=== PATIENT | female | born 2000 | race Caucasian/White ===

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

== ENCOUNTER 2022-01-22 13:43 | Emergency (ER) | payer BC, MEDICAID ==
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
[2022-01-22 15:02] LABS: Appearance CLOUDY (CLEAR); Bacteria RARE /HPF (NEGATIVE); Bilirubin NEGATIVE (NEGATIVE); Blood NEGATIVE Ery/ul (0-5); Epithelial Cells MODERATE /HPF (FEW); Glucose NEGATIVE (NEGATIVE); Hyaline Casts 0-2 /LPF (0-2); Ketones TRACE (NEGATIVE); Leukocyte Esterase NEGATIVE (NEGATIVE); Mucus SLIGHT /HPF (NEGATIVE); Nitrite NEGATIVE (NEGATIVE); Protein,Urine Dip 30 (Negative); RBC 0-2 /HPF (0-2); Specific Gravity 1.051 (1.005-1.025); Urobilinogen NEGATIVE mg/dL (0-1)
[2022-01-22 15:09] LABS: Absolute Neutrophil Ct (ANC) 3.93 (1.4-6.9); Basophil (Absolute #) 0.01 (0-0.4); Eosinophil % 0.3 % (0.00-5.0); Eosinophil (Absolute #) 0.02 (0-0.5); Hematocrit 38.3 % (35-47); Hemoglobin 12.1 gm/dl (12.0-16.0); Lymphocyte (Absolute #) 2.04 (1.0-4.6); Lymphocytes % 31.5 % (24.0-44.0); Mean Cell Volume 88.9 fl (78-100); Mean Corpuscular Hemoglobin 28.1 pg (26-32); Mean Corpuscular Hgb Concent. 31.6 g/dl (32-36); Monocyte (Absolute #) 0.47 (0.0-1.3); Monocytes % 7.3 % (0.0-12.0); Neutrophil % 60.7 % (36.0-66.0); Platelet Count 286 K/mm3 (150-450); Red Blood Count 4.31 M/mm3 (4.1-5.4); White Blood Count 6.5 K/mm3 (4.0-10.5)
[2022-01-22 15:16] LABS: ACETAMINOPHEN 12 ug/ml (10-30); ALBUMIN 4.2 g/dL (3.5-5.0); ALKALINE PHOSPHATASE 48 U/L (38-126); ANION GAP 10.8 MEQ/L (5-15); BLOOD UREA NITROGEN 7 mg/dL (7-17); CHLORIDE 106 mmol/L (98-107); Carbon Dioxide 24 mmol/L (22-30); Creatinine 1 0.66 mg/dL (0.52-1.04); EST GLOMERULAR FILTRATION RATE > 60.0 ML/MIN; ETHYL ALCOHOL < 10 mg/dL (0-10); Glucose 107 mg/dL (74-106); Potassium 3.2 mmol/L (3.5-5.1); SALICYLATE < 1.0 mg/dL (2-20); SGOT/AST 25 U/L (14-36); SGPT/ALT 32 U/L (0-35); SODIUM 138 mmol/L (137-145); Total Protein 7.4 g/dL (6.3-8.2)
[2022-01-22 15:18] LABS: Amphetamine,Urine NEGATIVE (NEGATIVE); Barbiturate,Urine NEGATIVE (NEGATIVE); Benzodiazepine,Urine NEGATIVE (NEGATIVE); Cocaine,Urine NEGATIVE (NEGATIVE); Methadone,Urine NEGATIVE (NEGATIVE); Opiate,Urine NEGATIVE (NEGATIVE); PCP,Urine NEGATIVE (NEGATIVE); THC,Urine NEGATIVE (NEGATIVE)
[2022-01-22 15:22] LABS: INR 1.3 (0.8-3.0); PROTIME 15.3 SECONDS (9.4-12.5)
[2022-01-22 15:25] LABS: PTT 36.5 SECONDS (25.1-36.5)
[2022-01-22 16:38] LABS: COVID AG -BINAX NOW RAPID TEST NEGATIVE (NEGATIVE)
[2022-01-22] MEDS ORDERED: Klor Con 10 MEQ PO ONE ×2 (18:31→18:43)
[2022-01-22 18:52] LABS: ALKALINE PHOSPHATASE 48 U/L (38-126); ANION GAP 11.2 MEQ/L (5-15); BLOOD UREA NITROGEN 7 mg/dL (7-17); CHLORIDE 106 mmol/L (98-107); Calcium 9.4 mg/dL (8.4-10.2); Carbon Dioxide 25 mmol/L (22-30); Creatinine 1 0.64 mg/dL (0.52-1.04); EST GLOMERULAR FILTRATION RATE > 60.0 ML/MIN; Glucose 88 mg/dL (74-106); Potassium 3.5 mmol/L (3.5-5.1); SGOT/AST 24 U/L (14-36); SGPT/ALT 31 U/L (0-35); SODIUM 139 mmol/L (137-145)
[2022-01-23 00:06] VITALS: BP 118/67; PULSE 76
[2022-01-23 00:19] VITALS: O2SAT 99
== END 2022-01-23 00:15 ==
LOC: ED 13:43
DX: T39.1X2A Poisoning by 4-Aminophenol derivatives, intentional self-harm, initial encounter (principal); R11.2 Nausea with vomiting, unspecified
CPT/HCPCS: 36000; 36415; 80053; 80307; 81001; 84703; 85025; 85610; 85730; 93005; 93041; 99000; 99285; A9270-GY; G0480

== ENCOUNTER 2023-11-12 15:55 | Emergency (ER) | payer BC, MEDICAID ==
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
[2023-11-12 16:11] VITALS: BP 119/70; PULSE 75; RESP 16; O2SAT 98
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
[2023-11-12] MEDS ORDERED: ZOFRAN ODT 4 MG PO ONE (17:19)
[2023-11-12] MEDS ORDERED: PERCOCET TABLET 5/325MG PO STA (17:19)
[2023-11-12] MEDS ORDERED: Norflex 60 MG/2 ML IM ONE (17:20)
[2023-11-12] MEDS ORDERED: TORAdol 30 mg Injection IM ONE (17:20)
[2023-11-12] MEDS ORDERED: TORAdol 30 mg Injection ONE ×2 (17:27→17:39)
[2023-11-12] MEDS ORDERED: ZOFRAN ODT 4 MG ONE (17:27)
[2023-11-12] MEDS ORDERED: OXYCODONE-ACETAMINOPHEN 10-325 ONE (17:28)
[2023-11-12] MEDS ORDERED: Norflex 60 MG/2 ML ONE (17:28)
[2023-11-12] MEDS ORDERED: PERCOCET TABLET 5/325MG ONE (17:45)
== END 2023-11-12 18:10 | disposition home or self-care (01) ==
LOC: ED 15:55
DX: G44.309 Post-traumatic headache, unspecified, not intractable (principal); F07.81 Postconcussional syndrome; R11.2 Nausea with vomiting, unspecified; Z28.310 Unvaccinated for COVID-19
CPT/HCPCS: 70450; 96372; 96374; 96375; 99283; J1885; J2360; Q0162; A9270-GY

== ENCOUNTER 2024-01-04 10:33 | Emergency (ER) | payer BC ==
[2024-01-04 10:48] VITALS: RESP 20; TEMP 97.5
--- NOTE | 2024-01-04 11:05 | ERPHSYRPT ---
- History of Present Illness Time Seen by Provider: 01/04/24 11:00 Exam Limitations: no limitations Patient Subjective Stated Complaint: Pt states "I think I have a kidney infection. I have to pee all the time, it kearns and now my lower back hurts." Triage Nursing Assessment: Pt presented alert and oriented X 3, skin pwd. Pt ambulates with an upright steady gait, able to speak in clear full sentences. PT resting comfortably on the bed. Physician History: Patient is a 23-year-old female presents to our ED for evaluation of urinary frequency and dysuria. Patient also complains of low back pain. No CVA tenderness. Symptoms started approximately 2 weeks ago. Symptoms have been progressive. Symptoms are moderate in intensity. No specific worsening or improving factors. No fever patient voices no other complaints or concerns at this time. Portions of this note were created with voice recognition technology. There may be grammatical, spelling, punctuation or sound alike errors. Timing/Duration: week(s) (2 weeks) Severity: moderate Modifying Factors: Improves With: nothing Associated Symptoms: denies symptoms Allergies/Adverse Reactions: pseudoephedrine Allergy (Severe, Verified 11/12/23 16:08) Hives amoxicillin trihydrate [From Amoxil] Allergy (Mild, Verified 11/12/23 16:08) Rash cefaclor [From Ceclor] Allergy (Verified 11/12/23 16:08) Swelling of Face swelling of tongue and ears "bad" Home Medications: norgestimate-ethinyl estradioL [Tri-Sprintec Tablet] 1 tab PO DAILY 01/22/22 [History] Hx Tetanus, Diphtheria Vaccination/Date Given: Yes Hx Influenza Vaccination/Date Given: No Hx Pneumococcal Vaccination/Date Given: No Immunizations Up to Date: No Travel Risk - International Travel Have you traveled outside of the country in past 3 weeks: No - Coronavirus Screening Are you exhibiting any of the following symptoms?: No Close contact with a COVID-19 positive Pt in past 14-21 Days: No - Vaccine Status Have you recieved a Covid-19 vaccination: No - Review of Systems Constitutional: No Symptoms, No Fever, No Chills Eyes: No Symptoms Ears, Nose, & Throat: No Symptoms Respiratory: No Symptoms, No Cough, No Dyspnea Cardiac: No Symptoms, No Chest Pain, No Edema, No Syncope Abdominal/Gastrointestinal: No Symptoms, No Abdominal Pain, No Nausea, No Vomiting, No Diarrhea Genitourinary Symptoms: No Symptoms, No Dysuria Musculoskeletal: No Symptoms, No Back Pain, No Neck Pain Skin: No Symptoms, No Rash Neurological: No Symptoms, No Dizziness, No Focal Weakness, No Sensory Changes Psychological: No Symptoms Endocrine: No Symptoms Hematologic/Lymphatic: No Symptoms Immunological/Allergic: No Symptoms All Other Systems: Reviewed and Negative - Past Medical History Pertinent Past Medical History: No Neurological History: No Pertinent History ENT History: No Pertinent History Cardiac History: No Pertinent History Respiratory History: No Pertinent History Endocrine Medical History: No Pertinent History Musculoskeletal History: No Pertinent History GI Medical History: Gallbladder Disease History: No Pertinent History Psycho-Social History: No Pertinent History Female Reproductive Disorders: No Pertinent History - Past Surgical History Past Surgical History: Yes Neuro Surgical History: No Pertinent History Cardiac: No Pertinent History Respiratory: No Pertinent History Gastrointestinal: Cholecystectomy Genitourinary: No Pertinent History Musculoskeletal: No Pertinent History Female Surgical History: No Pertinent History - Social History Smoking Status: Never smoker Exposure to second hand smoke: Yes Drug Use: none Patient Lives Alone: No - Female History Hx Last Menstrual Period: 12/23/2023 Hx Now: No - Nursing Vital Signs Nursing Vital Signs: Initial Vital Signs Temperature 97.5 F 01/04/24 10:43 Pulse Rate 79 01/04/24 10:43 Respiratory Rate 20 01/04/24 10:43 Blood Pressure 108/80 01/04/24 10:43 O2 Sat by Pulse Oximetry 97 01/04/24 10:43 Pain Scale Pain Intensity 5 - Physical Exam General Appearance: no apparent distress, alert Eye Exam: PERRL/EOMI, eyes nml inspection Ears, Nose, Throat Exam: normal ENT inspection, moist mucous membranes Neck Exam: normal inspection, non-tender, supple, full range of motion Respiratory Exam: normal breath sounds, lungs clear, airway intact, No respiratory distress Cardiovascular Exam: regular rate/rhythm, normal heart sounds, normal peripheral pulses Gastrointestinal/Abdomen Exam: soft, normal bowel sounds, other (Mild suprapubic tenderness. No flank pain. No CVA tenderness. No abdominal pain), No tenderness, No mass Back Exam: normal inspection, normal range of motion, No CVA tenderness, No vertebral tenderness Extremity Exam: normal inspection, normal range of motion, pelvis stable Neurologic Exam: alert, oriented x 3, cooperative, normal mood/affect, nml cerebellar function, nml station & gait, sensation nml, No motor deficits Skin Exam: normal color, warm, dry, No rash Lymphatic Exam: No adenopathy SpO2 Interpretation: normal SpO2: 97 O2 Delivery: Room Air - Course Nursing assessment & vital signs reviewed: Yes Ordered Tests: Active Orders 24 hr Category Date Time Status CULTURE,URINE Stat Lab 01/04/24 10:50 Received HCG QUALITATIVE, URINE Stat Lab 01/04/24 Completed UA W/RFX UR CULTURE Stat Lab 01/04/24 10:50 Completed Medication Summary Discontinued Medications Generic Name Dose Route Start Last Admin Trade Name Nicanorq PRN Reason Stop Dose Admin Trimethoprim/Sulfamethoxazole 1 tab 01/04/24 12:00 01/04/24 12:04 Smz/Tmp Ds Tablet 1 Tablet PO 01/04/24 12:01 1 tab STAT STA Administration Trimethoprim/Sulfamethoxazole Confirm 01/04/24 12:04 Smz/Tmp Ds Tablet 1 Tablet Administered 01/04/24 12:05 Dose 1 tab PO .[employer] ONE Lab/Rad Data: Laboratory Results 01/04/24 01/04/24 Range/Units Unknown 10:50 Urine Color Yellow (Yellow) Urine Appearance Clear (Clear) Urine pH 5.5 (4.6-8.0) Ur Specific Bledsoe 1.015 (1.005-1.030) Urine Protein 30 (Negative) Urine Glucose (UA) Negative (Negative) mg/dL Urine Ketones Negative (Negative) Urine Blood Moderate A (Negative) Urine Nitrite Negative (Negative) Urine Bilirubin Negative (Negative) Urine Urobilinogen 0.2 (0.2) mg/dL Ur Leukocyte Esterase Moderate A (Negative) U Hyaline Cast (Auto) NONE SEEN (0-2) /LPF Urine Microscopic RBC 51-100 A (0-5) /HPF Urine Microscopic WBC >100 A (0-5) /HPF Ur Epithelial Cells None Seen (None Seen) /HPF Urine Bacteria None Seen (None Seen) /HPF Urine Culture Reflexed YES (NO) Urine HCG, Qual NEGATIVE (NEGATIVE) - Progress Progress: improved Progress Note: 23-year-old female presents emergency department for evaluation of low back pain dysuria urinary frequency. Patient's symptoms progressively worsened over 2 weeks. Physical exam reveals some tenderness to the suprapubic region. No CVA tenderness. Patient does have mild low back pain near her sacrum. No fever. Urinalysis reveals significant urinary tract infection with pyuria. Patient is allergic to amoxicillin and cefaclor. Therefore we were unable to administer IM Rocephin. Patient received an oral dose of Bactrim DS. A prescription for the same was forwarded to patient's pharmacy. Patient reassessed. She is resting comfortable. No active pain or discomfort. Patient that she is ready for discharge. Patient agrees to follow-up with her primary care doctor within 48 hours for reevaluation. Voices no other complaints or concerns at this time. Portions of this note were created with voice recognition technology. There may be grammatical, spelling, punctuation or sound alike errors Complexity problem addressed is moderate acute complicated No critical care time Complexity of data reviewed and analyzed is moderate. Test ordered test reviewed. Results analyzed and correlated clinically with history and physical exam. Risk of complication and or risk of morbidity/mortality of patient management is moderate Vital stable. Time spent to discharge patient is approximately 15 minutes. Plan of care established for shared decision making. No social determinants of health present impede follow-up. Portions of this note were created with voice recognition technology. There may be grammatical, spelling, punctuation or sound alike errors 01/04/24 12:17 Counseled pt/family regarding: lab results, diagnosis, need for follow-up - Departure Departure Disposition: Home Clinical Impression: UTI (urinary tract infection) Condition: Stable Critical Care Time: No Referrals: VIRGINIA CHONG [Primary Care Provider] - Follow up/PCP as directed Additional Instructions: Discharge/Care Plan [email or web address] was seen on 01/04/24 in the Emergency Room. The patient was counseled regarding Diagnosis,Lab results, Imaging studies, need for follow up and when to return to the Emergency Room. Prescriptions given: Discharge Note I have spoken with the patient and/or caregivers. I have explained the patient's condition, diagnosis and treatment plan based on the information available to me at this time. I have answered the patient's and/or caregiver's questions and addressed any concerns. The patient and/or caregivers have as good understanding of the patient's diagnosis, condition and treatment plan as can be expected at this point. The vital signs have been stable. The patient's condition is stable and appropriate for discharge from the emergency department. The patient will pursue further outpatient evaluation with the primary care physician or other designated or consulting physician as outlined in the discharge instructions. The patient and/or caregivers are agreeable to this plan of care and follow-up instructions have been explained in detail. The patient and/or caregivers have received these instruction. The patient/and or caregivers are aware that any significant change in condition or worsening of symptoms should prompt an immediate return to this or the closest emergency department or call 911. Prescriptions: Smz/Tmp Ds Tablet [Bactrim Ds Tablet] 1 udtab PO BID 7 Days #14 tablet
[2024-01-04 11:12] LABS: Appearance Clear (Clear); Bacteria None Seen /HPF (None Seen); Bilirubin Negative (Negative); Blood Moderate (Negative); Epithelial Cells None Seen /HPF (None Seen); Glucose, Urine Negative (Negative); Hyaline Casts NONE SEEN /LPF (0-2); Ketones Negative (Negative); Leukocyte Esterase Moderate (Negative); Nitrite Negative (Negative); Ph 5.5 (4.6-8.0); Protein,Urine Dip 30 (Negative); RBC 51-100 /HPF (0-5); Specific Gravity 1.015 (1.005-1.030); Urobilinogen 0.2 mg/dL (0.2); WBC >100 /HPF (0-5)
[2024-01-04 11:13] LABS: ADD URINE CULTURE? YES (NO)
[2024-01-04 11:19] LABS: HCG URINE TEST NEGATIVE (NEGATIVE)
[2024-01-04 12:04] VITALS: BP 106/67; PULSE 72
[2024-01-04] MEDS ORDERED: BACTRIM DS TABLET PO ONE (12:04)
[2024-01-04] MEDS: BACTRIM DS TABLET PO STA (12:04)
[2024-01-04 12:23] VITALS: O2SAT 97
== END 2024-01-04 12:20 | disposition home or self-care (01) ==
LOC: ED 10:33
DX: N39.0 Urinary tract infection, site not specified (principal); R30.0 Dysuria; R35.0 Frequency of micturition; M54.50 Low back pain, unspecified; Z28.310 Unvaccinated for COVID-19
CPT/HCPCS: 81001; 81025; 87077; 87086; 87186; 99283; A9270-GY

== ENCOUNTER 2024-09-23 00:05 | Observation (INO) | payer BC ==
[2024-09-23 00:42] LABS: Hematocrit 37.8 % (34.1-44.9); Hemoglobin 11.6 g/dL (11.2-15.7); Mean Cell Volume 84.4 fL (79.4-94.8); Mean Corpuscular Hemoglobin 25.9 pg (25.6-32.2); Mean Corpuscular Hgb Concent. 30.7 g/dL (32.2-35.5); Mean Platelet Volume 10.9 fL (9.4-12.3); Platelet Count 310 x10^3/uL (182-369); Red Blood Count 4.48 x10^6/uL (3.93-5.22); Red Cell Distribution Width 14.4 % (11.7-14.4); White Blood Count 7.7 x10^3/uL (3.98-10.04)
[2024-09-23 00:44] LABS: HCG URINE TEST NEGATIVE (NEGATIVE)
--- NOTE | 2024-09-23 00:48 | ERPHSYRPT ---
- History of Present Illness Time Seen by Provider: 09/23/24 00:48 Source: patient Exam Limitations: no limitations Physician History: The patient, with a history of prior suicide attempts and inpatient psychiatric admissions, presents after an intentional overdose of Tylenol. The exact quantity ingested is unknown, but she describes it as 'a lot.' The ingestion occurred around 10:00, reportedly out of anger and with the intention to induce sleep. She denies any intent to self-harm. Following the ingestion, she experienced multiple episodes of vomiting, totaling four times before arrival at the hospital. She also reports feeling 'really, really tired.' There is no reported abdominal pain on palpation. Timing/Duration: today Severity of Symptoms-Max: moderate Severity of Symptoms-Current: moderate Context related to: significant other Suicidal thoughts: attempt, ingestion Associated Symptoms: anxiety, depressed, ingestion, suicidal ideation, No angry, No agitated, No frustrated, No hostile, No hallucinating Previous symptoms: same symptoms as today Allergies/Adverse Reactions: pseudoephedrine Allergy (Severe, Verified 09/23/24 00:12) Hives amoxicillin trihydrate [From Amoxil] Allergy (Mild, Verified 09/23/24 00:12) Rash cefaclor [From Ceclor] Allergy (Verified 09/23/24 00:12) Swelling of Face swelling of tongue and ears "bad" Home Medications: norgestimate-ethinyl estradioL [Tri-Sprintec Tablet] 1 tab PO DAILY 01/22/22 [History] Hx Tetanus, Diphtheria Vaccination/Date Given: Yes Hx Influenza Vaccination/Date Given: No Hx Pneumococcal Vaccination/Date Given: No Travel Risk - International Travel Have you traveled outside of the country in past 3 weeks: No - Past Medical History Pertinent Past Medical History: No Neurological History: No Pertinent History ENT History: No Pertinent History Cardiac History: No Pertinent History Respiratory History: No Pertinent History Endocrine Medical History: No Pertinent History Musculoskeletal History: No Pertinent History GI Medical History: Gallbladder Disease History: No Pertinent History Psycho-Social History: No Pertinent History Female Reproductive Disorders: No Pertinent History - Past Surgical History Past Surgical History: Yes Neuro Surgical History: No Pertinent History Cardiac: No Pertinent History Respiratory: No Pertinent History Gastrointestinal: Cholecystectomy Genitourinary: No Pertinent History Musculoskeletal: No Pertinent History Female Surgical History: No Pertinent History - Social History Smoking Status: Never smoker Exposure to second hand smoke: Yes Drug Use: none Patient Lives Alone: No - Review of Systems All Other Systems: Reviewed and Negative - Nursing Vital Signs Nursing Vital Signs: Initial Vital Signs Temperature 98.5 F 09/23/24 00:12 Pulse Rate 80 09/23/24 00:12 Respiratory Rate 16 09/23/24 00:12 Blood Pressure 123/69 09/23/24 00:12 O2 Sat by Pulse Oximetry 99 09/23/24 00:12 Pain Scale Pain Intensity 0 - Physical Exam General Appearance: no apparent distress, obese Respiratory Exam: normal breath sounds, lungs clear, airway intact, No respiratory distress Cardiovascular Exam: regular rate/rhythm, normal heart sounds, capillary refill <2 sec Gastrointestinal/Abdominal Exam: soft, normal bowel sounds, No tenderness, No distention, No mass, No guarding, No rebound Extremities Exam: normal inspection Neurological Exam: alert, normal mood/affect, calm, oriented x 3, depressed affect, flat Appearance: appropriate appearance, impaired insight Behavior/Eye Contact/Speech: alert & cooperative, avoids eye contact, decreased rate of speech Thoughts/Hallucinations: no apparent hallucination Skin Exam: normal color, warm, diaphoresis SpO2 Interpretation: normal O2 Delivery: Room Air - Course Nursing assessment & vital signs reviewed: Yes EKG Interpreted by Me: RATE (72), Sinus Rhythm, NORMAL AXIS, NORMAL INTERVALS, NORMAL QRS, NORMAL ST-T Ordered Tests: Medication Summary Generic Name Dose Route Start Last Admin Trade Name Freq PRN Reason Stop Dose Admin Famotidine 20 mg 09/23/24 10:00 09/23/24 21:13 Famotidine 20 Mg/1 Vial IV 10/23/24 09:59 20 mg Q12HT SEGUNDO Administration Promethazine HCl 12.5 mg/ 100.5 mls @ 201 mls/hr 09/23/24 05:11 09/23/24 05:20 Sodium Chloride IV 10/23/24 05:10 201 mls/hr Q4H PRN PRN Administration UNCONTROLLED NAUSEA Discontinued Medications Generic Name Dose Route Start Last Admin Trade Name Freq PRN Reason Stop Dose Admin Acetylcysteine Confirm 09/23/24 02:47 Acetylcysteine 200 Mg/Ml Ml Administered 09/23/24 02:48 Dose 600 mg IV .STK-MED ONE Acetylcysteine Confirm 09/23/24 03:25 Acetylcysteine 200 Mg/Ml Ml Administered 09/23/24 03:26 Dose 400 mg IV .STK-MED ONE Acetylcysteine / Dextrose 250 mls @ 250 mls/hr 09/23/24 02:42 IV 09/23/24 03:41 .Q1H ONE Dextrose Confirm 09/23/24 02:47 Dextrose 5%/Water Iv Soln. 250 Ml Administered 09/23/24 02:48 Dose 250 mls @ ud IV .STK-MED ONE Dextrose Confirm 09/23/24 03:25 Dextrose 5%/Water Iv Soln. 500 Ml Administered 09/23/24 03:26 Dose 500 mls @ ud IV .STK-MED ONE Ceftriaxone Sodium 1 gm in 100 mls @ 200 mls/hr 09/23/24 10:00 09/23/24 13:43 Rocephin 1 Gm / 100 Ml Nacl IV 10/23/24 09:59 Not Given Q24H10 SEGUNDO Sodium Chloride Confirm 09/23/24 05:17 Sodium Chloride 0.9% Administered 09/23/24 05:18 Dose 100 mls @ ud .ROUTE .STK-MED ONE Acetylcysteine 15,000 mg/ 325 mls @ 325 mls/hr 09/23/24 03:15 09/23/24 03:15 Dextrose IV 09/23/24 04:14 325 mls/hr .Q1H ONE 325 mls/hr Administration Acetylcysteine 5,000 mg/ 525 mls @ 131.25 mls/hr 09/23/24 05:00 09/23/24 04:30 Dextrose IV 09/23/24 08:59 131.25 mls/hr .Q4H ONE 131.25 mls/hr Administration Acetylcysteine 10,000 mg/ 1,050 mls @ 65.625 mls/hr 09/23/24 09:00 09/23/24 09:52 Dextrose IV 09/24/24 00:59 65 mls/hr .Q16H ONE 65 mls/hr Administration Potassium Chloride 100 mls @ 50 mls/hr 09/24/24 03:15 09/24/24 05:35 Potassium Chloride 20 Meq In Water 100ml IV 09/24/24 07:14 50 mls/hr Q2H SEGUNDO Administration Sodium Chloride Confirm 09/24/24 03:24 Sodium Chloride 0.9% Administered 09/24/24 03:25 Dose 100 mls @ ud .ROUTE .STK-MED ONE Sodium Chloride 100 mls @ 100 mls/hr 09/24/24 03:26 09/24/24 03:27 Sodium Chloride 0.9% IV 09/24/24 04:25 100 mls/hr STAT ONE Administration Sodium Chloride Confirm 09/24/24 04:15 Sodium Chloride 0.9% 500 Ml Administered 09/24/24 04:16 Dose 500 mls @ ud IV .STK-MED ONE Sodium Chloride 500 mls @ 50 mls/hr 09/24/24 04:30 09/24/24 04:19 Sodium Chloride 0.9% 500 Ml IV 10/24/24 04:29 50 mls/hr .Q10H SEGUNDO Administration Ondansetron HCl 8 mg 09/23/24 01:45 09/23/24 02:05 Ondansetron Hcl 4 Mg/2 Ml Vial IV 09/23/24 01:46 8 mg STAT ONE Administration Ondansetron HCl Confirm 09/23/24 02:05 Ondansetron Hcl 4 Mg/2 Ml Vial Administered 09/23/24 02:06 Dose 8 mg .ROUTE .STK-MED ONE Potassium Chloride 20 meq 09/24/24 03:15 09/24/24 07:22 Potassium Chloride Tab 10 Meq Tab PO 09/24/24 09:16 20 meq Q2H SEGUNDO Administration Promethazine HCl Confirm 09/23/24 05:17 Promethazine Hcl 25 Mg/Ml Vial Administered 09/23/24 05:18 Dose 25 mg .ROUTE .STK-MED ONE Lab/Rad Data: Laboratory Result Diagrams 09/23/24 00:40 09/23/24 00:40 Laboratory Results 09/23/24 09/23/24 09/23/24 Range/Units 02:20 02:08 00:40 WBC (3.98-10.04) x10^3/uL RBC (3.93-5.22) x10^6/uL Hgb (11.2-15.7) g/dL Hct (34.1-44.9) % MCV (79.4-94.8) fL MCH (25.6-32.2) pg MCHC (32.2-35.5) g/dL RDW (11.7-14.4) % Plt Count (182-369) x10^3/uL MPV (9.4-12.3) fL Segmented Neutrophils (34.0-71.1) % Band Neutrophils (0.0-2.0) % Lymphocytes (Manual) (19.3-51.7) % Monocytes (Manual) (4.7-12.5) % Platelet Estimate (NORMAL) RBC Morphology PT (9.4-12.5) SECONDS INR (0.8-3.0) APTT (25.1-36.5) SECONDS Sodium (135-145) mmol/L Potassium (3.5-5.1) mmol/L Chloride (98-107) mmol/L Carbon Dioxide (22-30) mmol/L Anion Gap (5-15) MEQ/L BUN (7-17) mg/dL Creatinine (0.52-1.04) mg/dL Estimated GFR ML/MIN Glucose (74-106) mg/dL Calcium (8.4-10.2) mg/dL Total Bilirubin (0.2-1.3) mg/dL AST (14-36) U/L ALT (0-35) U/L Alkaline Phosphatase (38-126) U/L Ammonia < 9 L (9-30) umol/L Serum Total Protein (6.3-8.2) g/dL Albumin (3.5-5.0) g/dL Urine Color Yellow (Yellow) Urine Appearance Clear (Clear) Urine pH 5.0 (4.6-8.0) Ur Specific [place] >=1.030 A (1.005-1.030) Urine Protein 30 (Negative) Urine Glucose (UA) Negative (Negative) mg/dL Urine Ketones Trace A (Negative) Urine Blood Negative (Negative) Urine Nitrite Negative (Negative) Urine Bilirubin Negative (Negative) Urine Urobilinogen 1.0 A (0.2) mg/dL Ur Leukocyte Esterase Small A (Negative) U Hyaline Cast (Auto) NONE SEEN (0-2) /LPF Urine Microscopic RBC 3-5 (0-5) /HPF Urine Microscopic WBC 11-20 A (0-5) /HPF Ur Epithelial Cells Many A (None Seen) /HPF Urine Bacteria Many A (None Seen) /HPF Urine Culture Reflexed YES (NO) Urine HCG, Qual (NEGATIVE) Salicylates (2-20) mg/dL Urine Opiates Level (NEGATIVE) Ur Methadone (NEGATIVE) Acetaminophen 174 H* (10-30) ug/ml Urine Barbiturates (NEGATIVE) Ur Phencyclidine (PCP) (NEGATIVE) Urine Amphetamine (NEGATIVE) U Benzodiazepine Level (NEGATIVE) Urine Cocaine (NEGATIVE) Urine Marijuana (THC) (NEGATIVE) Ethyl Alcohol (0-10) mg/dL 09/23/24 09/23/24 09/23/24 Range/Units 00:40 00:40 00:40 WBC 7.7 (3.98-10.04) x10^3/uL RBC 4.48 (3.93-5.22) x10^6/uL Hgb 11.6 (11.2-15.7) g/dL Hct 37.8 (34.1-44.9) % MCV 84.4 (79.4-94.8) fL MCH 25.9 (25.6-32.2) pg MCHC 30.7 L (32.2-35.5) g/dL RDW 14.4 (11.7-14.4) % Plt Count 310 (182-369) x10^3/uL MPV 10.9 (9.4-12.3) fL Segmented Neutrophils 69 (34.0-71.1) % Band Neutrophils 1 (0.0-2.0) % Lymphocytes (Manual) 21 (19.3-51.7) % Monocytes (Manual) 9 (4.7-12.5) % Platelet Estimate NORMAL (NORMAL) RBC Morphology NORMAL PT 11.1 (9.4-12.5) SECONDS INR 1.02 (0.8-3.0) APTT 32.3 (25.1-36.5) SECONDS Sodium (135-145) mmol/L Potassium (3.5-5.1) mmol/L Chloride (98-107) mmol/L Carbon Dioxide (22-30) mmol/L Anion Gap (5-15) MEQ/L BUN (7-17) mg/dL Creatinine (0.52-1.04) mg/dL Estimated GFR ML/MIN Glucose (74-106) mg/dL Calcium (8.4-10.2) mg/dL Total Bilirubin (0.2-1.3) mg/dL AST (14-36) U/L ALT (0-35) U/L Alkaline Phosphatase (38-126) U/L Ammonia (9-30) umol/L Serum Total Protein (6.3-8.2) g/dL Albumin (3.5-5.0) g/dL Urine Color (Yellow) Urine Appearance (Clear) Urine pH (4.6-8.0) Ur Specific [place] (1.005-1.030) Urine Protein (Negative) Urine Glucose (UA) (Negative) mg/dL Urine Ketones (Negative) Urine Blood (Negative) Urine Nitrite (Negative) Urine Bilirubin (Negative) Urine Urobilinogen (0.2) mg/dL Ur Leukocyte Esterase (Negative) U Hyaline Cast (Auto) (0-2) /LPF Urine Microscopic RBC (0-5) /HPF Urine Microscopic WBC (0-5) /HPF Ur Epithelial Cells (None Seen) /HPF Urine Bacteria (None Seen) /HPF Urine Culture Reflexed (NO) Urine HCG, Qual NEGATIVE (NEGATIVE) Salicylates (2-20) mg/dL Urine Opiates Level (NEGATIVE) Ur Methadone (NEGATIVE) Acetaminophen (10-30) ug/ml Urine Barbiturates (NEGATIVE) Ur Phencyclidine (PCP) (NEGATIVE) Urine Amphetamine (NEGATIVE) U Benzodiazepine Level (NEGATIVE) Urine Cocaine (NEGATIVE) Urine Marijuana (THC) (NEGATIVE) Ethyl Alcohol (0-10) mg/dL 09/23/24 09/23/24 Range/Units 00:40 00:40 WBC (3.98-10.04) x10^3/uL RBC (3.93-5.22) x10^6/uL Hgb (11.2-15.7) g/dL Hct (34.1-44.9) % MCV (79.4-94.8) fL MCH (25.6-32.2) pg MCHC (32.2-35.5) g/dL RDW (11.7-14.4) % Plt Count (182-369) x10^3/uL MPV (9.4-12.3) fL Segmented Neutrophils (34.0-71.1) % Band Neutrophils (0.0-2.0) % Lymphocytes (Manual) (19.3-51.7) % Monocytes (Manual) (4.7-12.5) % Platelet Estimate (NORMAL) RBC Morphology PT (9.4-12.5) SECONDS INR (0.8-3.0) APTT (25.1-36.5) SECONDS Sodium 141 (135-145) mmol/L Potassium 3.6 (3.5-5.1) mmol/L Chloride 105 (98-107) mmol/L Carbon Dioxide 23 (22-30) mmol/L Anion Gap 17.8 H (5-15) MEQ/L BUN 8 (7-17) mg/dL Creatinine 0.67 (0.52-1.04) mg/dL Estimated GFR 126.7 ML/MIN Glucose 125 H (74-106) mg/dL Calcium 9.2 (8.4-10.2) mg/dL Total Bilirubin 0.50 (0.2-1.3) mg/dL AST 36 (14-36) U/L ALT 36 H (0-35) U/L Alkaline Phosphatase 53 (38-126) U/L Ammonia (9-30) umol/L Serum Total Protein 7.8 (6.3-8.2) g/dL Albumin 4.2 (3.5-5.0) g/dL Urine Color (Yellow) Urine Appearance (Clear) Urine pH (4.6-8.0) Ur Specific [place] (1.005-1.030) Urine Protein (Negative) Urine Glucose (UA) (Negative) mg/dL Urine Ketones (Negative) Urine Blood (Negative) Urine Nitrite (Negative) Urine Bilirubin (Negative) Urine Urobilinogen (0.2) mg/dL Ur Leukocyte Esterase (Negative) U Hyaline Cast (Auto) (0-2) /LPF Urine Microscopic RBC (0-5) /HPF Urine Microscopic WBC (0-5) /HPF Ur Epithelial Cells (None Seen) /HPF Urine Bacteria (None Seen) /HPF Urine Culture Reflexed (NO) Urine HCG, Qual (NEGATIVE) Salicylates < 1.0 L (2-20) mg/dL Urine Opiates Level NEGATIVE (NEGATIVE) Ur Methadone NEGATIVE (NEGATIVE) Acetaminophen 239 H* (10-30) ug/ml Urine Barbiturates NEGATIVE (NEGATIVE) Ur Phencyclidine (PCP) NEGATIVE (NEGATIVE) Urine Amphetamine NEGATIVE (NEGATIVE) U Benzodiazepine Level NEGATIVE (NEGATIVE) Urine Cocaine NEGATIVE (NEGATIVE) Urine Marijuana (THC) NEGATIVE (NEGATIVE) Ethyl Alcohol < 10 (0-10) mg/dL - Progress Progress: improved Progress Note: Acetaminophen Overdose Ingested an unknown quantity of Tylenol at 10:00. No abdominal pain. Vomited four times. -Check initial Tylenol level now, repeat at 2 hours and 4 hours post-ingestion. -Monitor liver function tests. Psychiatric Evaluation History of prior suicide attempt. Denies current suicidal ideation but circumstances of overdose are suspicious. -Request psychiatric consult for further evaluation and management. Initial acetaminophen level 237 at 2 hours, 163 at 4 hours, poison control recommended initiation of NAC. Loading dose given. No elevation in LFTs at this time. Discussed admission, accepted by Dr. Perez. Will see patient in: hospital (observation) Counseled pt/family regarding: drug and/or alcohol abuse, lab results, diagnosis, need for follow-up Medical Desision Making - Independent Historian Additional History obtained from: Mother - Discussion of managment Care discussed with:: hospitalist Reviewed:: Test results, Need for additional workup Agreed on:: Treatment plan, place in obs - Diagnostic Testing Diagnostic test were ordered, analyzed, and reviewed by me: Yes Radiological Interpretation: Interpreted by me - Risk of complications The pt has a mod risk of morbidity or mortality based on: Need for prescription drug management The pt has a high risk of morbidity or mortality based on: Decision regarding hospitilization or escalation of hosp level of care - Departure Departure Disposition: Observation Clinical Impression: Suicidal deliberate poisoning, Acetaminophen toxicity, Overdose by acetaminophen, Nausea and vomiting Condition: Stable Critical Care Time: No
[2024-09-23 00:58] LABS: ALBUMIN 4.2 g/dL (3.5-5.0); ALKALINE PHOSPHATASE 53 U/L (38-126); ANION GAP 17.8 MEQ/L (5-15); BLOOD UREA NITROGEN 8 mg/dL (7-17); CHLORIDE 105 mmol/L (98-107); Calcium 9.2 mg/dL (8.4-10.2); Carbon Dioxide 23 mmol/L (22-30); Creatinine 1 0.67 mg/dL (0.52-1.04); EST GLOMERULAR FILTRATION RATE 126.7 ML/MIN; ETHYL ALCOHOL < 10 mg/dL (0-10); Glucose 125 mg/dL (74-106); Potassium 3.6 mmol/L (3.5-5.1); SALICYLATE < 1.0 mg/dL (2-20); SGOT/AST 36 U/L (14-36); SGPT/ALT 36 U/L (0-35); SODIUM 141 mmol/L (135-145); Total Protein 7.8 g/dL (6.3-8.2)
[2024-09-23 00:59] LABS: Amphetamine,Urine NEGATIVE (NEGATIVE); Barbiturate,Urine NEGATIVE (NEGATIVE); Benzodiazepine,Urine NEGATIVE (NEGATIVE); Cocaine,Urine NEGATIVE (NEGATIVE); Methadone,Urine NEGATIVE (NEGATIVE); Opiate,Urine NEGATIVE (NEGATIVE); PCP,Urine NEGATIVE (NEGATIVE); THC,Urine NEGATIVE (NEGATIVE)
[2024-09-23 01:29] LABS: ACETAMINOPHEN 239 ug/ml (10-30)
[2024-09-23 01:39] LABS: INR 1.02 (0.8-3.0); PROTIME 11.1 SECONDS (9.4-12.5); PTT 32.3 SECONDS (25.1-36.5)
[2024-09-23] MEDS: Zofran 4 MG/2 ML VIAL IV ONE (02:05)
[2024-09-23] MEDS ORDERED: Zofran 4 MG/2 ML VIAL ONE (02:05)
[2024-09-23 02:17] LABS: Appearance Clear (Clear); Bacteria Many /HPF (None Seen); Bilirubin Negative (Negative); Blood Negative (Negative); Epithelial Cells Many /HPF (None Seen); Glucose, Urine Negative (Negative); Hyaline Casts NONE SEEN /LPF (0-2); Ketones Trace (Negative); Nitrite Negative (Negative); Protein,Urine Dip 30 (Negative); Specific Gravity >=1.030 (1.005-1.030)
[2024-09-23 02:18] LABS: Leukocyte Esterase Small (Negative)
[2024-09-23] MEDS ORDERED: Acetadote IV 200 MG/ML*** 0 MG in Dextrose 5%/Water IV Soln. 250 ML 250 ML IV ONE (02:42)
[2024-09-23] MEDS ORDERED: Dextrose 5%/Water IV Soln. 250 ML 250 ML IV ONE (02:47)
[2024-09-23] MEDS ORDERED: Acetadote IV 200 MG/ML IV ONE ×2 (02:47→03:25)
[2024-09-23 02:57] LABS: BAND 1 % (0.0-2.0); Lymphocytes 21 % (19.3-51.7); Monocyte 9 % (4.7-12.5); Neutrophils 69 % (34.0-71.1); Platelet Estimate NORMAL (NORMAL); Total Cells Counted 100
[2024-09-23] MEDS: DEXTROSE IV ONE ×3 (03:15→09:52)
[2024-09-23] MEDS: ACETADOTE IV ONE ×3 (03:15→09:52)
[2024-09-23] MEDS: WATER IV ONE ×3 (03:15→09:52)
[2024-09-23] MEDS ORDERED: Dextrose 5%/Water IV Soln. 500 ML 500 ML IV ONE (03:25)
--- NOTE | 2024-09-23 05:13 | PCM.HP ---
History of Present Illness - Chief Complaint Chief Complaint: acetaminophen toxicity Date: 09/23/24 History of Present Illness: 24 years old lady with no significant past any history except prior attempted suicide came to the ER after intentional overdose of dosing of Tylenol the exact quantity is unknown but she took almost half of the bottle at 10 PM last night. She came with nausea vomiting and some epigastric discomfort., Of note history is limited as patient was in severe discomfort due to ongoing nausea not able to answer most of my question., Most of the info obtained from ER chart review. Vital signs were quite stable in ER. As far as lab w/u concerned Workup concerned it was significant for low potassium otherwise essentially negative. Tylenol level was running more than 250 she started on N-acetylcysteine protocol, repeat Tylenol level trended down nicely LFTs remained unremarkable and so does INR. patient admitted for close observation - Review of Systems All Other Systems: Reviewed and Negative Medications & Allergies Home Medications: Home Medication List norgestimate-ethinyl estradioL [Tri-Sprintec Tablet] 1 tab PO DAILY 01/22/22 [History Confirmed 09/23/24] Allergies/Adverse Reactions: Allergies Allergy/AdvReac Type Severity Reaction Status Date / Time pseudoephedrine Allergy Severe Hives Verified 09/23/24 00:12 amoxicillin trihydrate Allergy Mild Rash Verified 09/23/24 00:12 [From Amoxil] cefaclor [From Ceclor] Allergy Swelling Verified 09/23/24 00:12 of Face - Past Medical History Past Medical History: No Neurological History: No Pertinent History ENT History: No Pertinent History Cardiac History: No Pertinent History Respiratory History: No Pertinent History Endocrine Medical History: No Pertinent History Musculoskelatal History: No Pertinent History GI Medical History: Gallbladder Disease History: No Pertinent History Pyscho-Social History: No Pertinent History Reproductive Disorders: No Pertinent History Comment: anemia, SI attempts in the past - Female History Hx Last Menstrual Period: 09/18/24 Are you now?: No - Past Surgical History Past Surgical History: Yes Neuro Surgical History: No Pertinent History Cardiac History: No Pertinent History Respiratory Surgery: No Pertinent History GI Surgical History: Cholecystectomy Genitourinary Surgical Hx: No Pertinent History Musculskeletal Surgical Hx: No Pertinent History Female Surgical History: No Pertinent History Significant Family History: no pertinent family hx - Social History Smoking Status: Never smoker Exposure to second hand smoke: No Alcohol: None Drug Use: none - Social Determinants of Health Will the patient participate in the screening: Yes Do you worry about a steady place to live?: No Do you have any problems with any of the following?: No known problems In the past 12 months,have you had to go without utilities?: No Have you or anyone in your house had to go without enough: No Transportation Issues: No Has anyone in your support network made you feel unsafe?: No Does the patient want assistance with any of the above?: No - Physical Exam Vital Signs: Vital Signs - 24 hr Temp Pulse Resp BP BP Pulse Ox 09/23/24 04:31 98.5 F 82 17 123/69 98 09/23/24 04:29 82 17 121/91 98 09/23/24 04:28 92 H 16 97 09/23/24 04:24 76 16 97 09/23/24 04:10 84 19 98 09/23/24 04:03 90 16 97 09/23/24 03:30 95 H 17 128/71 97 09/23/24 03:00 66 15 98/61 96 09/23/24 02:31 67 15 119/63 97 09/23/24 02:08 87 19 106/70 98 09/23/24 01:50 86 17 99 09/23/24 01:40 86 21 99 09/23/24 01:31 79 17 95 09/23/24 01:00 84 19 113/72 98 09/23/24 00:31 72 16 108/72 98 09/23/24 00:12 98.5 F 80 16 123/69 99 Additional Findings: 09/23/24 05:12 HEENT Young aged, Obese built in distress, keeps vomiting NECK Supple,no thyromegaly, CVS S1+S2 + 0, no murmers RESP Bilateral equal air entry without Crepts/Wheezes heard GIT Soft non tender,non distended Skin, No rah, no Bruises LEGS No Edema PSYCH Normal,mood, judgement and insight NEURO AOX3, no focal deficit Results - Labs Lab/Micro Results: Lab Results-Last 24 Hours 09/23/24 09/23/24 09/23/24 Range/Units 00:40 00:40 00:40 WBC 7.7 (3.98-10.04) x10^3/uL RBC 4.48 (3.93-5.22) x10^6/uL Hgb 11.6 (11.2-15.7) g/dL Hct 37.8 (34.1-44.9) % MCV 84.4 (79.4-94.8) fL MCH 25.9 (25.6-32.2) pg MCHC 30.7 L (32.2-35.5) g/dL RDW 14.4 (11.7-14.4) % Plt Count 310 (182-369) x10^3/uL MPV 10.9 (9.4-12.3) fL Segmented Neutrophils 69 (34.0-71.1) % Band Neutrophils 1 (0.0-2.0) % Lymphocytes (Manual) 21 (19.3-51.7) % Monocytes (Manual) 9 (4.7-12.5) % Platelet Estimate NORMAL (NORMAL) RBC Morphology NORMAL PT (9.4-12.5) SECONDS INR (0.8-3.0) APTT (25.1-36.5) SECONDS Sodium 141 (135-145) mmol/L Potassium 3.6 (3.5-5.1) mmol/L Chloride 105 (98-107) mmol/L Carbon Dioxide 23 (22-30) mmol/L Anion Gap 17.8 H (5-15) MEQ/L BUN 8 (7-17) mg/dL Creatinine 0.67 (0.52-1.04) mg/dL Estimated GFR 126.7 ML/MIN Glucose 125 H (74-106) mg/dL Calcium 9.2 (8.4-10.2) mg/dL Total Bilirubin 0.50 (0.2-1.3) mg/dL AST 36 (14-36) U/L ALT 36 H (0-35) U/L Alkaline Phosphatase 53 (38-126) U/L Ammonia (9-30) umol/L Serum Total Protein 7.8 (6.3-8.2) g/dL Albumin 4.2 (3.5-5.0) g/dL Urine Color (Yellow) Urine Appearance (Clear) Urine pH (4.6-8.0) Ur Specific [place] (1.005-1.030) Urine Protein (Negative) Urine Glucose (UA) (Negative) mg/dL Urine Ketones (Negative) Urine Blood (Negative) Urine Nitrite (Negative) Urine Bilirubin (Negative) Urine Urobilinogen (0.2) mg/dL Ur Leukocyte Esterase (Negative) U Hyaline Cast (Auto) (0-2) /LPF Urine Microscopic RBC (0-5) /HPF Urine Microscopic WBC (0-5) /HPF Ur Epithelial Cells (None Seen) /HPF Urine Bacteria (None Seen) /HPF Urine Culture Reflexed (NO) Urine HCG, Qual (NEGATIVE) Salicylates < 1.0 L (2-20) mg/dL Urine Opiates Level NEGATIVE (NEGATIVE) Ur Methadone NEGATIVE (NEGATIVE) Acetaminophen 239 H* (10-30) ug/ml Urine Barbiturates NEGATIVE (NEGATIVE) Ur Phencyclidine (PCP) NEGATIVE (NEGATIVE) Urine Amphetamine NEGATIVE (NEGATIVE) U Benzodiazepine Level NEGATIVE (NEGATIVE) Urine Cocaine NEGATIVE (NEGATIVE) Urine Marijuana (THC) NEGATIVE (NEGATIVE) Ethyl Alcohol < 10 (0-10) mg/dL 09/23/24 09/23/24 09/23/24 Range/Units 00:40 00:40 00:40 WBC (3.98-10.04) x10^3/uL RBC (3.93-5.22) x10^6/uL Hgb (11.2-15.7) g/dL Hct (34.1-44.9) % MCV (79.4-94.8) fL MCH (25.6-32.2) pg MCHC (32.2-35.5) g/dL RDW (11.7-14.4) % Plt Count (182-369) x10^3/uL MPV (9.4-12.3) fL Segmented Neutrophils (34.0-71.1) % Band Neutrophils (0.0-2.0) % Lymphocytes (Manual) (19.3-51.7) % Monocytes (Manual) (4.7-12.5) % Platelet Estimate (NORMAL) RBC Morphology PT 11.1 (9.4-12.5) SECONDS INR 1.02 (0.8-3.0) APTT 32.3 (25.1-36.5) SECONDS Sodium (135-145) mmol/L Potassium (3.5-5.1) mmol/L Chloride (98-107) mmol/L Carbon Dioxide (22-30) mmol/L Anion Gap (5-15) MEQ/L BUN (7-17) mg/dL Creatinine (0.52-1.04) mg/dL Estimated GFR ML/MIN Glucose (74-106) mg/dL Calcium (8.4-10.2) mg/dL Total Bilirubin (0.2-1.3) mg/dL AST (14-36) U/L ALT (0-35) U/L Alkaline Phosphatase (38-126) U/L Ammonia < 9 L (9-30) umol/L Serum Total Protein (6.3-8.2) g/dL Albumin (3.5-5.0) g/dL Urine Color (Yellow) Urine Appearance (Clear) Urine pH (4.6-8.0) Ur Specific [place] (1.005-1.030) Urine Protein (Negative) Urine Glucose (UA) (Negative) mg/dL Urine Ketones (Negative) Urine Blood (Negative) Urine Nitrite (Negative) Urine Bilirubin (Negative) Urine Urobilinogen (0.2) mg/dL Ur Leukocyte Esterase (Negative) U Hyaline Cast (Auto) (0-2) /LPF Urine Microscopic RBC (0-5) /HPF Urine Microscopic WBC (0-5) /HPF Ur Epithelial Cells (None Seen) /HPF Urine Bacteria (None Seen) /HPF Urine Culture Reflexed (NO) Urine HCG, Qual NEGATIVE (NEGATIVE) Salicylates (2-20) mg/dL Urine Opiates Level (NEGATIVE) Ur Methadone (NEGATIVE) Acetaminophen (10-30) ug/ml Urine Barbiturates (NEGATIVE) Ur Phencyclidine (PCP) (NEGATIVE) Urine Amphetamine (NEGATIVE) U Benzodiazepine Level (NEGATIVE) Urine Cocaine (NEGATIVE) Urine Marijuana (THC) (NEGATIVE) Ethyl Alcohol (0-10) mg/dL 09/23/24 09/23/24 Range/Units 02:08 02:20 WBC (3.98-10.04) x10^3/uL RBC (3.93-5.22) x10^6/uL Hgb (11.2-15.7) g/dL Hct (34.1-44.9) % MCV (79.4-94.8) fL MCH (25.6-32.2) pg MCHC (32.2-35.5) g/dL RDW (11.7-14.4) % Plt Count (182-369) x10^3/uL MPV (9.4-12.3) fL Segmented Neutrophils (34.0-71.1) % Band Neutrophils (0.0-2.0) % Lymphocytes (Manual) (19.3-51.7) % Monocytes (Manual) (4.7-12.5) % Platelet Estimate (NORMAL) RBC Morphology PT (9.4-12.5) SECONDS INR (0.8-3.0) APTT (25.1-36.5) SECONDS Sodium (135-145) mmol/L Potassium (3.5-5.1) mmol/L Chloride (98-107) mmol/L Carbon Dioxide (22-30) mmol/L Anion Gap (5-15) MEQ/L BUN (7-17) mg/dL Creatinine (0.52-1.04) mg/dL Estimated GFR ML/MIN Glucose (74-106) mg/dL Calcium (8.4-10.2) mg/dL Total Bilirubin (0.2-1.3) mg/dL AST (14-36) U/L ALT (0-35) U/L Alkaline Phosphatase (38-126) U/L Ammonia (9-30) umol/L Serum Total Protein (6.3-8.2) g/dL Albumin (3.5-5.0) g/dL Urine Color Yellow (Yellow) Urine Appearance Clear (Clear) Urine pH 5.0 (4.6-8.0) Ur Specific [place] >=1.030 A (1.005-1.030) Urine Protein 30 (Negative) Urine Glucose (UA) Negative (Negative) mg/dL Urine Ketones Trace A (Negative) Urine Blood Negative (Negative) Urine Nitrite Negative (Negative) Urine Bilirubin Negative (Negative) Urine Urobilinogen 1.0 A (0.2) mg/dL Ur Leukocyte Esterase Small A (Negative) U Hyaline Cast (Auto) NONE SEEN (0-2) /LPF Urine Microscopic RBC 3-5 (0-5) /HPF Urine Microscopic WBC 11-20 A (0-5) /HPF Ur Epithelial Cells Many A (None Seen) /HPF Urine Bacteria Many A (None Seen) /HPF Urine Culture Reflexed YES (NO) Urine HCG, Qual (NEGATIVE) Salicylates (2-20) mg/dL Urine Opiates Level (NEGATIVE) Ur Methadone (NEGATIVE) Acetaminophen 174 H* (10-30) ug/ml Urine Barbiturates (NEGATIVE) Ur Phencyclidine (PCP) (NEGATIVE) Urine Amphetamine (NEGATIVE) U Benzodiazepine Level (NEGATIVE) Urine Cocaine (NEGATIVE) Urine Marijuana (THC) (NEGATIVE) Ethyl Alcohol (0-10) mg/dL Assessment/Plan (1) Acetaminophen toxicity Current Visit: Yes Status: Acute Code(s): T39.1X1A - POISONING BY 4- AMINOPHENOL DERIVATIVES, ACCIDENTAL, INIT (2) Nausea and vomiting Current Visit: Yes Status: Acute Code(s): R11.2 - NAUSEA WITH VOMITING, UNSPECIFIED (3) Suicidal deliberate poisoning Current Visit: Yes Status: Acute Code(s): T65.92XA - TOXIC EFFECT OF UNSP SUBSTANCE, INTENTIONAL SELF-HARM, INIT (4) UTI (urinary tract infection) Current Visit: No Status: Acute Code(s): N39.0 - URINARY TRACT INFECTION, SITE NOT SPECIFIED Telemedicine Encounter - Telemedicine Encounter Telemedicine Encounter: The entirety of this encounter was performed via TelemedicineThis visit was performed using real-time audio and video connection between my location and thepatients locationwith the assistance of a surrogateat the patients location. Written or verbal consent was obtained from the patient/guardian to perform this visit using[facility] Fundst[facility] [employer] technology. Any patient questions regarding the telemedicine interaction were answered. Acetaminophen over dosage An attempt of committing suicide Initial acetaminophen level was 239 Patient started on N- acetylcystein gtt Acetaminophen level trending down nicely LFTs, INR within normal range Patient needs to stay in the hospital for continuous monitoring of LFTs and acetaminophen level Nausea vomiting Intractable due to overdosage Continue Zofran alternate with Phenergan Continue Pepcid 20 mg IV twice daily Suicidal intention Mother is in the room, serving as sitter Needs telepsych evaluation in the morning DVT prophylaxis SCD CODE STATUS full Discharge planning pending clinical stability. I have reviewed patient lab vitals and imaging in detail question and concerns were addressed
[2024-09-23] MEDS ORDERED: Sodium Chloride 0.9% 100 ML ONE (05:17)
[2024-09-23] MEDS ORDERED: Phenergan 25 MG INJ ONE (05:17)
[2024-09-23] MEDS: Phenergan 25 MG INJ*** 12.5 MG in Sodium Chloride 0.9% 100 ML IV PRN (05:20)
[2024-09-23 06:50] LABS: ALBUMIN 4.1 g/dL (3.5-5.0); ANION GAP 16.5 MEQ/L (5-15); BILIRUBIN,TOTAL 0.5 mg/dL (0.2-1.3); Calcium 9.1 mg/dL (8.4-10.2); Creatinine 1 0.57 mg/dL (0.52-1.04); EST GLOMERULAR FILTRATION RATE 131.7 ML/MIN; Potassium 3.4 mmol/L (3.5-5.1); Total Protein 7.6 g/dL (6.3-8.2)
[2024-09-23 06:58] LABS: INR 1.08 (0.8-3.0); PROTIME 11.7 SECONDS (9.4-12.5)
[2024-09-23] MEDS: Pepcid 20 MG VIAL IV SCH (09:14)
[2024-09-23] MEDS: ROCEPHIN 1 GM / 100 ML NaCl 1 GM/100 ML IVPB IV SCH (13:43)
[2024-09-24 02:32] LABS: Absolute Neutrophil Ct (ANC) 4.97 x10^3/uL (1.56-6.13); BASOPHIL % 0.3 % (0.1-1.2); Basophil (Absolute #) 0.02 x10^3/uL (0.01-0.08); Eosinophil % 1.4 % (0.7-5.8); Eosinophil (Absolute #) 0.11 x10^3/uL (0.04-0.36); Hematocrit 34.5 % (34.1-44.9); Hemoglobin 10.9 g/dL (11.2-15.7); IMMATURE GRAN # 0.01 x10^3u/L (0.001-0.031); IMMATURE GRAN % 0.1 % (0.001-0.429); Lymphocyte (Absolute #) 2.19 x10^3/uL (1.18-3.74); Lymphocytes % 28.3 % (19.3-51.7); Mean Cell Volume 84.4 fL (79.4-94.8); Mean Corpuscular Hemoglobin 26.7 pg (25.6-32.2); Mean Corpuscular Hgb Concent. 31.6 g/dL (32.2-35.5); Monocyte (Absolute #) 0.43 x10^3/uL (0.24-0.86); Monocytes % 5.6 % (4.7-12.5); Neutrophil % 64.3 % (34.0-71.1); Platelet Count 265 x10^3/uL (182-369); Red Blood Count 4.09 x10^6/uL (3.93-5.22); Red Cell Distribution Width 14.6 % (11.7-14.4); White Blood Count 7.7 x10^3/uL (3.98-10.04)
[2024-09-24 02:42] LABS: ACETAMINOPHEN < 10 ug/ml (10-30); ALBUMIN 3.8 g/dL (3.5-5.0); ALKALINE PHOSPHATASE 44 U/L (38-126); BLOOD UREA NITROGEN 3 mg/dL (7-17); CHLORIDE 105 mmol/L (98-107); Calcium 8.8 mg/dL (8.4-10.2); Carbon Dioxide 22 mmol/L (22-30); Creatinine 1 0.64 mg/dL (0.52-1.04); EST GLOMERULAR FILTRATION RATE 128.1 ML/MIN; Glucose 91 mg/dL (74-106); SGOT/AST 26 U/L (14-36); SGPT/ALT 26 U/L (0-35); SODIUM 139 mmol/L (135-145)
[2024-09-24 02:44] LABS: INR 1.17 (0.8-3.0); PROTIME 12.6 SECONDS (9.4-12.5)
[2024-09-24 02:47] LABS: Potassium 2.8 mmol/L (3.5-5.1)
[2024-09-24] MEDS: POTASSIUM CHLORIDE 20 mEq IN WATER 100ML 100 ML IV SCH (03:18)
[2024-09-24] MEDS: Klor Con PO SCH (03:18)
[2024-09-24] MEDS ORDERED: Sodium Chloride 0.9% 100 ML ONE (03:24)
[2024-09-24] MEDS: Sodium Chloride 0.9% 100 ML IV ONE (03:27)
[2024-09-24] MEDS ORDERED: Sodium Chloride 0.9% 500 ML 500 ML IV ONE (04:15)
[2024-09-24] MEDS: Sodium Chloride 0.9% 500 ML 500 ML IV SCH (04:19)
[2024-09-24 07:59] LABS: Potassium 3.7 mmol/L (3.5-5.1)
--- NOTE | 2024-09-24 09:21 | PCM.DS ---
Discharge Summary Date of Admission: 09/23/24 04:19 Date of Discharge: 09/24/24 Admitting Physician: DARLEEN MARTINEZ MD Consults: Consults on Case 09/23/24 11:51 Consult,Maria Eugenia [Psychiatric Consult] STAT Primary Care Provider: VIRGINIA CHONG Allergies Allergies pseudoephedrine Allergy (Severe, Verified 09/23/24 00:12) Hives amoxicillin trihydrate [From Amoxil] Allergy (Mild, Verified 09/23/24 00:12) Rash cefaclor [From Ceclor] Allergy (Verified 09/23/24 00:12) Swelling of Face swelling of tongue and ears "bad" Hospital Summary - Hospital Course Hospital Course: HPI: 24 years old lady with no significant past any history except prior attempted suicide came to the ER after intentional overdose of dosing of Tylenol the exact quantity is unknown but she took almost half of the bottle at 10 PM last night. She came with nausea vomiting and some epigastric discomfort., Of note history is limited as patient was in severe discomfort due to ongoing nausea not able to answer most of my question., Most of the info obtained from ER chart review. Vital signs were quite stable in ER. As far as lab w/u concerned Workup concerned it was significant for low potassium otherwise essentially negative. Tylenol level was running more than 250 she started on N-acetylcysteine protocol, repeat Tylenol level trended down nicely LFTs remained unremarkable and so does INR. patient admitted for close observation. Psych consulted and recommends IP psych at for which patient is agreeable. She received N-acetylcysteine per poison control protocol. Her acetaminophen level is now <10, INR WNL. LFTs also WNL. Potassium low this morning and being replenished. Patient is stable for transfer. Discharge Note New Diagnosis: New Medications: Follow Up: Results pending: Outpatient testing to order: Latest Assessment & Plan Acetaminophen over dosage An attempt of committing suicide Initial acetaminophen level was 239 on admission now <10 Patient started on N- acetylcystein gtt - now discontinued LFTs, INR within normal range Will transfer to IP psych at [facility] per recommendations Nausea vomiting Intractable due to overdosage Continue Zofran alternate with Phenergan Continue Pepcid 20 mg IV twice daily -Resolved Suicidal intention Mother is in the room, serving as sitter Telepsych consulted with recs for IP psych at [facility] - will transfer today I spent 35 minutes [id number] with the patient on the day of discharge performing discharge exam, discussing hospital stay and discharge instructions with patient and caregivers, preparation of discharge records, prescriptions & referral forms and addressing any questions/concerns the patient had as documented above. - Vitals & Intake/Output Vital Signs: Vital Signs Temperature 98.9 F 09/24/24 08:14 Pulse Rate 82 09/24/24 08:11 Respiratory Rate 17 09/24/24 08:11 Blood Pressure 130/76 09/24/24 08:11 O2 Sat by Pulse Oximetry 96 09/24/24 08:11 Intake & Output: Intake & Output 09/21/24 09/22/24 09/23/24 09/24/24 11:59 11:59 11:59 10:59 Intake Total 100 1514 Output Total 240 Balance -140 1514 Weight 121.6 kg - Lab Result Diagrams: 09/24/24 02:29 09/24/24 07:40 Lab Results-Last 24 Hrs: Lab Results-Last 24 Hours 09/24/24 09/24/24 09/24/24 Range/Units 02:29 02:29 02:29 WBC 7.7 (3.98-10.04) x10^3/uL RBC 4.09 (3.93-5.22) x10^6/uL Hgb 10.9 L (11.2-15.7) g/dL Hct 34.5 (34.1-44.9) % MCV 84.4 (79.4-94.8) fL MCH 26.7 (25.6-32.2) pg MCHC 31.6 L (32.2-35.5) g/dL RDW 14.6 H (11.7-14.4) % Plt Count 265 (182-369) x10^3/uL MPV 11.0 (9.4-12.3) fL Gran % 64.3 (34.0-71.1) % Immature Gran % (Auto) 0.1 (0.001-0.429) % Nucleat RBC Rel Count 0.0 (0.00-0.2) % Eos # (Auto) 0.11 (0.04-0.36) x10^3/uL Immature Gran # (Auto) 0.01 (0.001-0.031) x10^3u/L Absolute Lymphs (auto) 2.19 (1.18-3.74) x10^3/uL Absolute Monos (auto) 0.43 (0.24-0.86) x10^3/uL Absolute Nucleated RBC 0.00 (0.00-0.012) x10^3u/L Lymphocytes % 28.3 (19.3-51.7) % Monocytes % 5.6 (4.7-12.5) % Eosinophils % 1.4 (0.7-5.8) % Basophils % 0.3 (0.1-1.2) % Absolute Granulocytes 4.97 (1.56-6.13) x10^3/uL Basophils # 0.02 (0.01-0.08) x10^3/uL PT 12.6 H (9.4-12.5) SECONDS INR 1.17 (0.8-3.0) Sodium 139 (135-145) mmol/L Potassium 2.8 L* (3.5-5.1) mmol/L Chloride 105 (98-107) mmol/L Carbon Dioxide 22 (22-30) mmol/L Anion Gap 15.0 (5-15) MEQ/L BUN 3 L (7-17) mg/dL Creatinine 0.64 (0.52-1.04) mg/dL Estimated GFR 128.1 ML/MIN Glucose 91 (74-106) mg/dL Calcium 8.8 (8.4-10.2) mg/dL Magnesium (1.6-2.3) mg/dL Total Bilirubin 0.50 (0.2-1.3) mg/dL AST 26 (14-36) U/L ALT 26 (0-35) U/L Alkaline Phosphatase 44 (38-126) U/L Serum Total Protein 7.0 (6.3-8.2) g/dL Albumin 3.8 (3.5-5.0) g/dL Acetaminophen < 10 L (10-30) ug/ml 09/24/24 09/24/24 Range/Units 02:48 07:40 WBC (3.98-10.04) x10^3/uL RBC (3.93-5.22) x10^6/uL Hgb (11.2-15.7) g/dL Hct (34.1-44.9) % MCV (79.4-94.8) fL MCH (25.6-32.2) pg MCHC (32.2-35.5) g/dL RDW (11.7-14.4) % Plt Count (182-369) x10^3/uL MPV (9.4-12.3) fL Gran % (34.0-71.1) % Immature Gran % (Auto) (0.001-0.429) % Nucleat RBC Rel Count (0.00-0.2) % Eos # (Auto) (0.04-0.36) x10^3/uL Immature Gran # (Auto) (0.001-0.031) x10^3u/L Absolute Lymphs (auto) (1.18-3.74) x10^3/uL Absolute Monos (auto) (0.24-0.86) x10^3/uL Absolute Nucleated RBC (0.00-0.012) x10^3u/L Lymphocytes % (19.3-51.7) % Monocytes % (4.7-12.5) % Eosinophils % (0.7-5.8) % Basophils % (0.1-1.2) % Absolute Granulocytes (1.56-6.13) x10^3/uL Basophils # (0.01-0.08) x10^3/uL PT (9.4-12.5) SECONDS INR (0.8-3.0) Sodium (135-145) mmol/L Potassium 3.7 D (3.5-5.1) mmol/L Chloride (98-107) mmol/L Carbon Dioxide (22-30) mmol/L Anion Gap (5-15) MEQ/L BUN (7-17) mg/dL Creatinine (0.52-1.04) mg/dL Estimated GFR ML/MIN Glucose (74-106) mg/dL Calcium (8.4-10.2) mg/dL Magnesium 1.9 2.0 (1.6-2.3) mg/dL Total Bilirubin (0.2-1.3) mg/dL AST (14-36) U/L ALT (0-35) U/L Alkaline Phosphatase (38-126) U/L Serum Total Protein (6.3-8.2) g/dL Albumin (3.5-5.0) g/dL Acetaminophen (10-30) ug/ml Discharge Exam General Appearance: no apparent distress Neurologic Exam: alert, oriented x 3, cooperative, other (Sad/flat affect) Eye Exam: PERRL Ears, Nose, Throat Exam: normal ENT inspection Neck Exam: normal inspection Respiratory Exam: normal breath sounds, lungs clear Cardiovascular Exam: regular rate/rhythm, normal heart sounds Gastrointestinal/Abdomen Exam: soft, normal bowel sounds Rectal Exam: deferred Back Exam: normal inspection Extremity Exam: normal inspection Skin Exam: normal color Final Diagnosis/Problem List - Final Discharge Diagnosis/Problem (1) Acetaminophen toxicity Current Visit: Yes Status: Acute Code(s): T39.1X1A - POISONING BY 4-AMINOPH ENOL DERIVATIVES, ACCIDENTAL, INIT (2) Nausea and vomiting Current Visit: Yes Status: Resolved Code(s): R11.2 - NAUSEA WITH VOMITING, UNSPECIFIED (3) Suicidal deliberate poisoning Current Visit: Yes Status: Acute Code(s): T65.92XA - TOXIC EFFECT OF UNSP SUBSTANCE, INTENTIONAL SELF-HARM, INIT - Discharge Disposition: Condition: Stable Prescriptions: New Famotidine 20 mg PO BID 30 Days #60 tablet Continue norgestimate-ethinyl estradioL [Tri-Sprintec Tablet] 1 tab PO DAILY Follow up with: VIRGINIA CHONG [Primary Care Provider] -
[2024-09-24 17:24] VITALS: BP 142/72
[2024-09-24 17:26] VITALS: PULSE 77; RESP 20; TEMP 98; O2SAT 97
== END 2024-09-24 17:10 ==
LOC: ED 00:05 → ICU 04:19
PROVIDERS: ADMIT Internal Medicine; ATTEND Internal Medicine
DX: T39.1X2A Poisoning by 4-Aminophenol derivatives, intentional self-harm, initial encounter (principal); R11.2 Nausea with vomiting, unspecified; Z79.899 Other long term (current) drug therapy; N39.0 Urinary tract infection, site not specified
CPT/HCPCS: 36000; 36415; 80053; 80143; 80179; 80307; 81001; 81025; 82077; 82140; 83735; 84132; 85025; 85610; 85730; 87086; 93005; 93268; 96374; 99285; J0132; J2405; J2550; J3480; Q3014; A9270-GY; G0378

== ENCOUNTER 2025-10-06 11:44 | Emergency (ER) | payer BC ==
[2025-10-06 12:04] VITALS: TEMP 98.4
--- NOTE | 2025-10-06 12:21 | ERPHSYRPT ---
- History of Present Illness Time Seen by Provider: 10/06/25 11:53 Historian: patient Exam Limitations: no limitations Patient Subjective Stated Complaint: Pt. states, "I woke up with burning in my stomach and nausea the midnight before last, then I woke up with vomiting and diarrhea. My diarrhea is watery and black. I haven't had much appetite. It helps if I lie on my side. " Triage Nursing Assessment: Pt. ambulated to room with steady gait, she is A&Ox3, Skin pale, warm and dry, REsp. even unlabored, No edema, abdomen soft, tender in upper quads and epigastric region, + BS x 4. No active vomiting. Urine collected. Physician History: 25-year-old female presents to the emergency room with watery diarrhea and abdominal cramping for the past 3 days patient reports she has had intermittent nausea denies any sick contacts denies any recent travel denies any recent antibiotic use patient reports she had some potentially bad food when her symptoms started she initially started with nausea and cramping and then progressed to diarrhea denies any fevers she reports she tried some Pepto-Bismol with minimal improvement denies any cough congestion denies any chest pain or shortness of breath denies any urinary symptoms denies any rash now in ED for further eval Timing/Duration: day(s) (3) Activities at Onset: none Abdominal Pain Onset Location: generalized abdomen Severity of Pain-Max: mild Severity of Pain-Current: mild Modifying Factors: Improves With: vomiting Associated Symptoms: diarrhea Allergies/Adverse Reactions: pseudoephedrine Allergy (Severe, Verified 09/23/24 00:12) Hives amoxicillin trihydrate [From Amoxil] Allergy (Mild, Verified 09/23/24 00:12) Rash cefaclor [From Ceclor] Allergy (Verified 09/23/24 00:12) Swelling of Face swelling of tongue and ears "bad" Home Medications: norgestimate-ethinyl estradioL [Tri-Sprintec Tablet] 1 tab PO DAILY 01/22/22 [History] Sertraline HCl 50 mg [Zoloft 50 mg Tablet] 50 mg PO DAILY 07/25/25 [History] Hx Tetanus, Diphtheria Vaccination/Date Given: Yes Hx Influenza Vaccination/Date Given: No Hx Pneumococcal Vaccination/Date Given: No Immunizations Up to Date: No Travel Risk - International Travel Have you traveled outside of the country in past 3 weeks: No - Emerging Infectious Disease Are you exhibiting symptoms associated with any current EIDs: No Symptoms: Vomitting - Review of Systems Constitutional: No Fever, No Chills Eyes: No Symptoms Ears, Nose, & Throat: No Symptoms Respiratory: No Cough, No Dyspnea Cardiac: No Chest Pain, No Edema, No Syncope Abdominal/Gastrointestinal: Abdominal Pain, Nausea, Vomiting, Diarrhea Genitourinary Symptoms: No Dysuria Musculoskeletal: No Back Pain, No Neck Pain Skin: No Rash Neurological: No Dizziness, No Focal Weakness, No Sensory Changes Psychological: No Symptoms Endocrine: No Symptoms All Other Systems: Reviewed and Negative - Past Medical History Pertinent Past Medical History: No Neurological History: No Pertinent History ENT History: No Pertinent History Cardiac History: No Pertinent History Respiratory History: No Pertinent History Endocrine Medical History: No Pertinent History Musculoskeletal History: No Pertinent History GI Medical History: Gallbladder Disease History: No Pertinent History Psycho-Social History: No Pertinent History Female Reproductive Disorders: No Pertinent History Other Medical History: anemia, SI attempts in the past - Past Surgical History Past Surgical History: Yes Neuro Surgical History: No Pertinent History Cardiac: No Pertinent History Respiratory: No Pertinent History Gastrointestinal: Cholecystectomy Genitourinary: No Pertinent History Musculoskeletal: No Pertinent History Female Surgical History: No Pertinent History Significant Family History: no pertinent family hx - Female History Hx Last Menstrual Period: current Hx Now: No - Social History Smoking Status: Never smoker Exposure to second hand smoke: Yes Drug Use: none - Social Determinants of Health Will the patient participate in the screening: Declined to provide - Nursing Vital Signs Nursing Vital Signs: Initial Vital Signs Temperature 98.4 F 10/06/25 11:45 Pulse Rate 79 10/06/25 11:45 Respiratory Rate 18 10/06/25 11:45 Blood Pressure 117/74 10/06/25 11:45 O2 Sat by Pulse Oximetry 97 10/06/25 11:45 Pain Scale Pain Intensity 9 - Physical Exam General Appearance: no apparent distress, alert Eye Exam: PERRL/EOMI, eyes nml inspection Ears, Nose, Throat Exam: normal ENT inspection, pharynx normal, moist mucous membranes Neck Exam: normal inspection, non-tender, supple, full range of motion Respiratory Exam: normal breath sounds, lungs clear, No respiratory distress Cardiovascular Exam: regular rate/rhythm, normal heart sounds Gastrointestinal/Abdomen Exam: soft, No tenderness, No mass Back Exam: normal inspection, normal range of motion, No CVA tenderness, No vertebral tenderness Extremity Exam: normal inspection, normal range of motion, pelvis stable Neurologic Exam: alert, oriented x 3, cooperative, normal mood/affect, nml cerebellar function, sensation nml, No motor deficits Skin Exam: normal color, warm, dry SpO2: 99 - Course Nursing assessment & vital signs reviewed: Yes Ordered Tests: Active Orders 24 hr Category Date Time Status IV Insertion STAT Care 10/06/25 12:19 Active NPO (ED) STAT Care 10/06/25 12:19 Active CBC W DIFF Stat Lab 10/06/25 12:10 Completed CMP Stat Lab 10/06/25 12:10 Received CULTURE,URINE Stat Lab 10/06/25 12:03 Received HCG QUALITATIVE, URINE Stat Lab 10/06/25 12:03 Completed LIPASE Stat Lab 10/06/25 12:10 Received Lactic Acid Stat Lab 10/06/25 12:19 Completed UA W/RFX UR CULTURE Stat Lab 10/06/25 12:03 Completed Medication Summary Discontinued Medications Generic Name Dose Route Start Last Admin Trade Name Freq PRN Reason Stop Dose Admin Famotidine 20 mg 10/06/25 12:19 10/06/25 12:35 Famotidine 20 Mg/1 Vial IV 10/06/25 12:20 20 mg STAT ONE Administration Famotidine Confirm 10/06/25 12:34 Famotidine 20 Mg/1 Vial Administered 10/06/25 12:35 Dose 20 mg IV .STK-MED ONE Sodium Chloride 1,000 mls @ 999 mls/hr 10/06/25 12:19 10/06/25 12:36 Sodium Chloride 0.9% 1000 Ml IV 10/06/25 13:19 999 mls/hr .Q1H1M STA Administration Sodium Chloride Confirm 10/06/25 12:34 Sodium Chloride 0.9% 1000 Ml Administered 10/06/25 12:35 Dose 1,000 mls @ ud .ROUTE .STK-MED ONE Ondansetron HCl 4 mg 10/06/25 12:19 10/06/25 12:35 Ondansetron Hcl 4 Mg/2 Ml Vial IV 10/06/25 12:20 4 mg STAT ONE Administration Ondansetron HCl Confirm 10/06/25 12:34 Ondansetron Hcl 4 Mg/2 Ml Vial Administered 10/06/25 12:35 Dose 4 mg .ROUTE .K-MED ONE Lab/Rad Data: Laboratory Result Diagrams 10/06/25 12:10 Laboratory Results 10/06/25 10/06/25 10/06/25 Range/Units 12:19 12:10 12:03 WBC 3.8 L (3.98-10.04) x10^3/uL RBC 4.76 (3.93-5.22) x10^6/uL Hgb 12.2 (11.2-15.7) g/dL Hct 40.3 (34.1-44.9) % MCV 84.7 (79.4-94.8) fL MCH 25.6 (25.6-32.2) pg MCHC 30.3 L (32.2-35.5) g/dL RDW 14.6 H (11.7-14.4) % Plt Count 264 (182-369) x10^3/uL MPV 12.1 (9.4-12.3) fL Gran % 52.7 (34.0-71.1) % Immature Gran % (Auto) 0.3 (0.001-0.429) % Nucleat RBC Rel Count 0.0 (0.00-0.2) % Eos # (Auto) 0.07 (0.04-0.36) x10^3/uL Immature Gran # (Auto) 0.01 (0.001-0.031) x10^3u/L Absolute Lymphs (auto) 1.35 (1.18-3.74) x10^3/uL Absolute Monos (auto) 0.37 (0.24-0.86) x10^3/uL Absolute Nucleated RBC 0.00 (0.00-0.012) x10^3u/L Lymphocytes % 35.2 (19.3-51.7) % Monocytes % 9.7 (4.7-12.5) % Eosinophils % 1.8 (0.7-5.8) % Basophils % 0.3 (0.1-1.2) % Absolute Granulocytes 2.02 (1.56-6.13) x10^3/uL Basophils # 0.01 (0.01-0.08) x10^3/uL Lactic Acid 0.7 (0.4-2.0) Urine Color (Yellow) Urine Appearance (Clear) Urine pH (4.6-8.0) Ur Specific [place] (1.005-1.030) Urine Protein (Negative) Urine Glucose (UA) (Negative) mg/dL Urine Ketones (Negative) Urine Blood (Negative) Urine Nitrite (Negative) Urine Bilirubin (Negative) Urine Urobilinogen (0.2) mg/dL Ur Leukocyte Esterase (Negative) U Hyaline Cast (Auto) (0-2) /LPF Urine Microscopic RBC (0-5) /HPF Urine Microscopic WBC (0-5) /HPF Ur Epithelial Cells (None Seen) /HPF Urine Bacteria (None Seen) /HPF Urine Culture Reflexed (NO) Urine HCG, Qual NEGATIVE (NEGATIVE) 10/06/25 Range/Units 12:03 WBC (3.98-10.04) x10^3/uL RBC (3.93-5.22) x10^6/uL Hgb (11.2-15.7) g/dL Hct (34.1-44.9) % MCV (79.4-94.8) fL MCH (25.6-32.2) pg MCHC (32.2-35.5) g/dL RDW (11.7-14.4) % Plt Count (182-369) x10^3/uL MPV (9.4-12.3) fL Gran % (34.0-71.1) % Immature Gran % (Auto) (0.001-0.429) % Nucleat RBC Rel Count (0.00-0.2) % Eos # (Auto) (0.04-0.36) x10^3/uL Immature Gran # (Auto) (0.001-0.031) x10^3u/L Absolute Lymphs (auto) (1.18-3.74) x10^3/uL Absolute Monos (auto) (0.24-0.86) x10^3/uL Absolute Nucleated RBC (0.00-0.012) x10^3u/L Lymphocytes % (19.3-51.7) % Monocytes % (4.7-12.5) % Eosinophils % (0.7-5.8) % Basophils % (0.1-1.2) % Absolute Granulocytes (1.56-6.13) x10^3/uL Basophils # (0.01-0.08) x10^3/uL Lactic Acid (0.4-2.0) Urine Color Red A (Yellow) Urine Appearance Turbid A (Clear) Urine pH 5.5 (4.6-8.0) Ur Specific [place] 1.025 (1.005-1.030) Urine Protein 300 A (Negative) Urine Glucose (UA) Negative (Negative) mg/dL Urine Ketones Negative (Negative) Urine Blood Large A (Negative) Urine Nitrite Negative (Negative) Urine Bilirubin Small A (Negative) Urine Urobilinogen 1.0 A (0.2) mg/dL Ur Leukocyte Esterase Moderate A (Negative) U Hyaline Cast (Auto) NONE SEEN (0-2) /LPF Urine Microscopic RBC >100 A (0-5) /HPF Urine Microscopic WBC >100 A (0-5) /HPF Ur Epithelial Cells Many A (None Seen) /HPF Urine Bacteria Many A (None Seen) /HPF Urine Culture Reflexed YES (NO) Urine HCG, Qual (NEGATIVE) - Progress Progress: improved Progress Note: 10/06/25 13:33 Patient feels improved after IV fluids Zofran and Pepcid was given patient was given first dose of her antibiotics Macrobid for UTI sent off a culture patient will be discharged at this time we will provide patient a work note she reports she is not due back till Wednesday patient be discharged with prescription for Zofran Pepcid and Macrobid - Departure Departure Disposition: Home Clinical Impression: UTI (urinary tract infection) Qualifiers: Urinary tract infection type: site unspecified Hematuria presence: with hematuria Qualified Code(s): N39.0 - Urinary tract infection, site not specified; R31.9 - Hematuria, unspecified Diarrhea Qualifiers: Diarrhea type: unspecified type Qualified Code(s): R19.7 - Diarrhea, unspecified Condition: Stable Critical Care Time: No Referrals: VIRGINIA CHONG [Primary Care Provider, [facility]] - Follow up/PCP as directed Instructions: Abdominal pain, Urinary tract infections in adults, Dyspepsia (DC) Prescriptions: Ondansetron ODT 4 MG [Zofran Odt 4 mg] 4 mg PO Q6H PRN PRN #10 tablet PRN Reason: Nausea Nitrofurantoin Macro 100 mg [Macrobid 100MG Capsule] 100 mg PO BID #14 cap Famotidine 20 mg [Pepcid 20 MG] 20 mg PO BID #10 tablet
[2025-10-06] MEDS ORDERED: Pepcid 20 MG VIAL IV ONE (12:34)
[2025-10-06] MEDS ORDERED: Zofran 4 MG/2 ML VIAL ONE (12:34)
[2025-10-06] MEDS: Zofran 4 MG/2 ML VIAL IV ONE (12:35)
[2025-10-06] MEDS: Pepcid 20 MG VIAL IV ONE (12:35)
[2025-10-06 12:38] LABS: BASOPHIL % 0.3 % (0.1-1.2); Basophil (Absolute #) 0.01 x10^3/uL (0.01-0.08); Eosinophil (Absolute #) 0.07 x10^3/uL (0.04-0.36); Hematocrit 40.3 % (34.1-44.9); Hemoglobin 12.2 g/dL (11.2-15.7); IMMATURE GRAN # 0.01 x10^3u/L (0.001-0.031); IMMATURE GRAN % 0.3 % (0.001-0.429); Lymphocyte (Absolute #) 1.35 x10^3/uL (1.18-3.74); Mean Corpuscular Hemoglobin 25.6 pg (25.6-32.2); Mean Corpuscular Hgb Concent. 30.3 g/dL (32.2-35.5); Monocyte (Absolute #) 0.37 x10^3/uL (0.24-0.86); NUCLEATED RBC # 0.00 x10^3u/L (0.00-0.012); NUCLEATED RBC % 0.0 % (0.00-0.2); Platelet Count 264 x10^3/uL (182-369); Red Blood Count 4.76 x10^6/uL (3.93-5.22); White Blood Count 3.8 x10^3/uL (3.98-10.04)
[2025-10-06 12:39] LABS: HCG URINE TEST NEGATIVE (NEGATIVE)
[2025-10-06 12:53] LABS: Glucose, Urine Negative (Negative); Protein,Urine Dip 300 (Negative); RBC >100 /HPF (0-5); WBC >100 /HPF (0-5)
[2025-10-06 13:04] VITALS: BP 100/55; PULSE 71; RESP 15
[2025-10-06 13:36] VITALS: O2SAT 99
[2025-10-06 13:43] LABS: Calcium 8.5 mg/dL (8.4-10.2); Carbon Dioxide 25.0 mmol/L (22-30); Creatinine 1 0.66 mg/dL (0.52-1.04); EST GLOMERULAR FILTRATION RATE 126.3 ML/MIN; Glucose 99.0 mg/dL (74-106); Potassium 3.5 mmol/L (3.5-5.1); SGOT/AST 39.0 U/L (14-36); SGPT/ALT 26.0 U/L (0-35); Total Protein 8.0 g/dL (6.3-8.2)
[2025-10-06] MEDS ORDERED: Macrobid 100MG Capsule ONE (13:45)
[2025-10-06] MEDS: Macrobid 100MG Capsule PO ONE (13:46)
== END 2025-10-06 14:01 | disposition home or self-care (01) ==
LOC: ED 11:44
DX: N39.0 Urinary tract infection, site not specified (principal); R31.9 Hematuria, unspecified; R19.7 Diarrhea, unspecified; R11.0 Nausea; R10.84 Generalized abdominal pain; Z79.899 Other long term (current) drug therapy